=== PATIENT | male | born 1990 | race Two or more races ===

== ENCOUNTER 2018-10-15 19:07 | Emergency (ER) | payer SELFPAY ==
[2018-10-15] MEDS ORDERED: ASPIRIN 81 MG TABLET, CHEWABLE PO ONE (20:41)
--- NOTE | 2018-10-15 20:43 | ER Document Report ---
ED Medical Screen (RME) - General Stated Complaint: CHEST PAIN Time Seen by Provider: 10/15/18 20:38 Mode of Arrival: Ambulatory Information source: Patient Notes: Patient presents emergency department with complaints of chest pain headache and feeling weak for the past 3 days. Denies history of cardiac disease. Denies drinking energy drinks. Denies recreational drugs reports he feels nauseated. I have greeted and performed a rapid initial assessment of this patient. A comprehensive ED assessment and evaluation of the patient, analysis of test results and completion of the medical decision making process will be conducted by additional ED providers. Given Physical Exam - Vital signs Vitals: Temp Pulse Resp BP Pulse Ox 98.3 F 70 18 146/70 H 100 10/15/18 20:16 10/15/18 20:16 10/15/18 20:16 10/15/18 20:16 10/15/18 20:16 Course - Vital Signs Vital signs: Temp Pulse Resp BP Pulse Ox 98.3 F 70 18 146/70 H 100 10/15/18 20:16 10/15/18 20:16 10/15/18 20:16 10/15/18 20:16 10/15/18 20:16
--- NOTE | 2018-10-15 21:18 | RADIOLOGY REPORT (SQ) ---
EXAM DESCRIPTION: XR CHEST 2 VIEWS COMPLETED DATE/TME: 10/15/2018 20:40 CLINICAL HISTORY: 28 years, Male, cp COMPARISON: None. NUMBER OF VIEWS: 2 TECHNIQUE: Two-view, PA and lateral projections of the chest were obtained. LIMITATIONS: None. FINDINGS: Unremarkable cardiac and mediastinal silhouette. Heart size is normal. Lungs are clear without focal opacity, pneumothorax or pleural effusions. The visualized bones are within normal limits. IMPRESSION: No acute cardiopulmonary abnormalities. copyright 2010 [employer]- All Rights Reserved
--- NOTE | 2018-10-15 23:27 | EKG REPORT ---
SEVERITY:- NORMAL ECG - SINUS RHYTHM : Confirmed by: Kina Lazo MD 15-Oct-2018 23:26:39
--- NOTE | 2018-10-16 02:05 | ER Document Report ---
ED General - General Chief Complaint: Chest Pain Stated Complaint: CHEST PAIN Time Seen by Provider: 10/15/18 20:38 Mode of Arrival: Ambulatory Notes: Patient is a 28-year-old male presents with complaint of feeling fatigue and also having some chest pain. He said he has had some body aches throughout. This is been ongoing for approximately 3 days. He also mentions that he typically drinks alcohol on a daily basis and usually drinks approximately 12 pack a day. He says he did stop drinking 3 days ago. No fevers. Some nausea. No vomiting. No tremor. No seizure-like activity. No other complaints at this time. No history of coronary disease. No chronic medical problems other than chronic alcohol use. - Related Data Allergies/Adverse Reactions: No Known Allergies Allergy (Unverified 10/16/18 04:02) Past Medical History - General Information source: Patient - Social History Smoking Status: Never Smoker Frequency of alcohol use: Heavy Drug Abuse: None Family History: Reviewed & Not Pertinent Review of Systems - Review of Systems Notes: My Normal Review Basic REVIEW OF SYSTEMS: CONSTITUTIONAL : Denies fever, chills, or sweats. Denies recent illness. EENT: Denies eye, ear, throat, or mouth pain or symptoms. Denies nasal or sinus congestion. CARDIOVASCULAR: Mild substernal RESPIRATORY: Denies cough, cold, or chest congestion. Denies shortness of breath, difficulty breathing, or wheezing. GASTROINTESTINAL: Denies abdominal pain. Denies nausea, vomiting, or diarrhea. MUSCULOSKELETAL: Denies neck or back pain or joint pain or swelling. SKIN: Denies rash or skin lesions. NEUROLOGICAL: Denies altered mental status or loss of consciousness. Denies headache. Denies weakness or paralysis or loss of use of either side. Denies problems with gait or speech. Denies sensory or motor loss. ALL OTHER SYSTEMS REVIEWED AND NEGATIVE. Physical Exam - Vital signs Vitals: Temp Pulse Resp BP Pulse Ox 98.3 F 70 18 146/70 H 100 10/15/18 20:16 10/15/18 20:16 10/15/18 20:16 10/15/18 20:16 10/15/18 20:16 - Notes Notes: General Appearance: Well nourished, alert, cooperative, no acute distress, no obvious discomfort. Well-appearing. Vitals: reviewed, See vital signs table. Head: no swelling or tenderness to the head Eyes: PERRL, EOMI, Conjuctiva clear Mouth: No decreasd moisture Lungs: No wheezing, No rales, No rhonci, No accessory muscle use, good air exchange bilaterally. Heart: Normal rate, Regular rythm, No murmur, no rub Abdomen: Normal BS, soft, No rigidity, No abdominal tenderness, No guarding, no rebound, no abdominal masses, no organomegaly Extremities: strength 5/5 in all extremities, good pulses in all extremities, no swelling or tenderness in the extremities, no edema. Skin: warm, dry, appropriate color, no rash Neuro: speech clear, oriented x 3, normal affect, responds appropriately to questions. Symmetric facial movement. Patient moves all extremities without difficulty. Distal sensation intact. Normal gait. Course - Re-evaluation Re-evalutation: 10/16/18 06:03 Patient's laboratory evaluation is unremarkable. I do not suspect coronary disease as the cause of his chest pain this patient not have any risk factors and his history is not really consistent with that of an ME. His pain is reproducible palpation. He only has a heart score of 1. Feel the patient safe to be discharged home. I suspect that his body aches and chest pain and fatigue is probably related to the fact that he recently stopped drinking alcohol. I encouraged him to continue stop drinking alcohol as he is not having any signs of dangerous withdrawal and that he has not had seizures and is not having tremors. I informed him that eventually he will start to feel improved as long as he continues to drink alcohol. I encouraged her drink lots of liquids and the rest. I informed him to return to ER if he has worsening of symptoms, fevers, intractable vomiting, or if he feels unwell. Patient agrees with plan will be discharged home. Dictation of this chart was performed using voice recognition software; therefore, there may be some unintended grammatical errors. - Vital Signs Vital signs: Temp Pulse Resp BP Pulse Ox 97.2 F 67 20 121/74 100 10/16/18 03:52 10/16/18 03:52 10/16/18 03:52 10/16/18 03:52 10/16/18 03:52 - Laboratory Result Diagrams: 10/16/18 02:50 10/16/18 02:50 Laboratory results interpreted by me: 10/16/18 10/16/18 10/16/18 02:50 02:50 02:50 WBC 10.9 H Glucose 118 H Total Protein 8.4 H TSH 6.07 H - EKG Interpretation by Me Additional EKG results interpreted by me: 10/16/18 02:04 EKG 1 is reviewed and interpreted by me. EKG shows sinus rhythm with a rate of [address] segment elevation. No ST segment depression. No ischemic T wave inversions. RI interval, QRS duration, QT intervals are within normal range. EKG #2 is reviewed and interpreted by me. EKG shows sinus rhythm with a rate of [address] segment elevation for mild concave up ST segment elevation in inferior leads. No ST segment depression. No ischemic T wave inversions. RI interval, QRS duration, QT intervals are within normal range. Discharge - Discharge Clinical Impression: Chest pain Qualifiers: Chest pain type: unspecified Qualified Code(s): R07.9 - Chest pain, unspecified Fatigue Qualifiers: Fatigue type: unspecified Qualified Code(s): R53.83 - Other fatigue Condition: Good Disposition: HOME, SELF-CARE Additional Instructions: Your blood work did not show any concerning findings. Your chest x-ray was normal. Work-up looking at your heart did not show any evidence of heart attack. I suspect that your fatigue and body aches are related to you recently quitting alcohol. You should continue to not drink alcohol. Please drink water. Eventually the symptoms will improve. Please return to ER immediately if you have vomiting, fevers, worsening chest pain, difficulty breathing, or if you feel that you are worsening in any way. Forms: Return to Work
[2018-10-16] MEDS ORDERED: NORMAL SALINE 1000 ML 1,000 ML IV ONE (02:12)
[2018-10-16 03:07] LABS: ABSOLUTE EOSINOPHILS # (AUTO) 0.2 10^3/uL (0.0-0.6); ABSOLUTE LYMPHOCYTES (AUTO) 4.1 10^3/uL (0.5-4.7); ABSOLUTE MONOCYTES (AUTO) 0.9 10^3/uL (0.1-1.4); ABSOLUTE NEUT (AUTO) 5.6 10^3/uL (1.7-8.2); BASOPHILS % (AUTO) 0.3 % (0-2); EOSINOPHILS % (AUTO) 1.7 % (0-6); HEMOGLOBIN 15.3 g/dL (13.5-17.0); LYMPHOCYTES % (AUTO) 37.6 % (13-45); MEAN CORPUSCULAR HEMOGLOBIN 29.6 pg (27.0-33.4); MEAN CORPUSCULAR HGB CONC 34.7 g/dL (32.0-36.0); MEAN CORPUSCULAR VOLUME 85 fl (80-97); MONOCYTES % (AUTO) 8.6 % (3-13); PLATELET COUNT 230 10^3/uL (150-450); RED BLOOD COUNT 5.16 10^6/uL (4.35-5.55); RED CELL DISTRIBUTION WIDTH 12.5 % (11.5-14.0); SEGMENTED NEUTROPHILS % (AUTO) 51.8 % (42-78); TOTAL CELLS COUNTED % (AUTO) 100 %; WHITE BLOOD COUNT 10.9 10^3/uL (4.0-10.5)
[2018-10-16 03:37] LABS: ALANINE AMINOTRANSFERASE 30 U/L (21-72); ALBUMIN 4.6 g/dL (3.5-5.0); ALKALINE PHOSPHATASE 70 U/L (38-126); ANION GAP 9 (5-19); ASPARTATE AMINO TRANSFERASE 22 U/L (17-59); BILIRUBIN,DIRECT 0.3 mg/dL (0.0-0.4); BILIRUBIN,TOTAL 0.5 mg/dL (0.2-1.3); BLOOD UREA NITROGEN 17 mg/dL (7-20); CALCIUM 9.5 mg/dL (8.4-10.2); CARBON DIOXIDE 28 mmol/L (22-30); CHLORIDE 103 mmol/L (98-107); CREATINE KINASE 78 U/L (55-170); GLUCOSE 118 mg/dL (75-110); POTASSIUM 4.2 mmol/L (3.6-5.0); SODIUM 139.5 mmol/L (137-145); TOTAL PROTEIN 8.4 g/dL (6.3-8.2)
[2018-10-16 04:48] LABS: APPEARANCE,URINE CLEAR; BILIRUBIN,URINE NEGATIVE (NEGATIVE); COLOR,URINE YELLOW; GLUCOSE, URINE NEGATIVE (NEGATIVE); KETONES,URINE NEGATIVE (NEGATIVE); LEUKOCYTE ESTERASE,URINE NEGATIVE (NEGATIVE); NITRITE,URINE NEGATIVE (NEGATIVE); PROTEIN,URINE NEGATIVE (NEGATIVE); URINE SPECIFIC GRAVITY 1.028; UROBILINOGEN,URINE NEGATIVE mg/dL (<2.0)
[2018-10-16 05:08] LABS: URINE AMPHETAMINES SCREEN NEGATIVE; URINE BARBITURATES SCREEN NEGATIVE; URINE BENZODIAZEPINES SCREEN NEGATIVE; URINE COCAINE SCREEN NEGATIVE; URINE MARIJUANA (THC) SCREEN UNCONFIRMED POSITIVE; URINE METHADONE SCREEN NEGATIVE; URINE PHENCYCLIDINE SCREEN NEGATIVE
[2018-10-16 06:46] VITALS: BP 130/79
== END 2018-10-16 06:46 | disposition home or self-care (01) ==
LOC: ER 19:07
DX: R07.9 Chest pain, unspecified (principal); R53.83 Other fatigue; R11.0 Nausea
CPT/HCPCS: 93005; 99284; 96360; 36415; 82550; 83735; 84443; 85025; 80053; 81001; 84484; 80307; 71046; 93010; J7030

== ENCOUNTER 2019-10-02 10:44 | Emergency (ER) | payer SELFPAY ==
[2019-10-02 11:02] VITALS: BP 134/88
--- NOTE | 2019-10-02 11:18 | ER Document Report ---
HPI - HPI Patient complains to provider of: Dental Pain Time Seen by Provider: 10/02/19 11:07 Pain Level: 5 Context: 28-year-old male with no previous medical problems presents the emergency room complaining of left lower posterior dental pain for the past 4 days. States he has a broken tooth back there. Has been taking Advil PM to help him sleep without relief. Has not seen a dentist has not made a dental appointment. States is painful to chew. Is tolerating p.o. fluids without difficulty. Denies any fevers. Associated Symptoms: None Exacerbated by: Other - Chewing Relieved by: Denies Similar symptoms previously: No Recently seen / treated by doctor: No - ROS ROS below otherwise negative: No - CONSTITUTIONAL Constitutional: DENIES: Fever - EENT Notes: Left lower posterior dental pain - NEURO Neurology: DENIES: Headache, Weakness - CARDIOVASCULAR Cardiovascular: DENIES: Chest pain - RESPIRATORY Respiratory: DENIES: Trouble Breathing - DERM Skin Color: Normal Skin Problems: None Past Medical History - General Information source: Patient - Social History Smoking Status: Current Every Day Smoker Frequency of alcohol use: Social Drug Abuse: Marijuana Family History: Reviewed & Not Pertinent Patient has homicidal ideation: No Renal/ Medical History: Denies: Hx Peritoneal Dialysis Vertical Provider Document - CONSTITUTIONAL Agree With Documented VS: Yes Exam Limitations: No Limitations General Appearance: Mild Distress - INFECTION CONTROL TRAVEL OUTSIDE OF THE [place] IN LAST 30 DAYS: No - HEENT HEENT: Atraumatic, Normocephalic Mouth Diagram: 1 - Fractured tooth with erythema and swelling noted around the tooth. - NECK Neck: Normal Inspection, Supple. negative: Lymphadenopathy-Left, Lymphadenopathy-Right - RESPIRATORY Respiratory: Breath Sounds Normal, No Respiratory Distress, Chest Non-Tender. negative: Rales, Rhonchi, Wheezing - CARDIOVASCULAR Cardiovascular: Regular Rate, Regular Rhythm, No Murmur - MUSCULOSKELETAL/EXTREMETIES Musculoskeletal/Extremeties: MAEW, FROM, Non-Tender - NEURO Level of Consciousness: Awake, Alert, Appropriate Motor/Sensory: No Motor Deficit, No Sensory Deficit - DERM Integumentary: Warm, Dry, No Rash Course - Re-evaluation Re-evalutation: 10/02/19 11:13 Counseled diagnosis with patient. Counseled to take medications as prescribed. Counseled on importance of following up with a dentist as soon as possible. Patient was given strict return to the emergency room guidelines. Return for any new or worsening symptoms. All questions were answered. Patient verbalized understanding and agrees with plan of care. - Vital Signs Vital signs: Temp Pulse Resp BP Pulse Ox 98.8 F 85 16 134/88 H 99 10/02/19 11:02 10/02/19 11:00 10/02/19 11:00 10/02/19 11:00 10/02/19 11:00 Discharge - Discharge Clinical Impression: Pain, dental, Dental abscess Condition: Stable Disposition: HOME, SELF-CARE Instructions: Abscess ([facility]), [facility], Penicillin V K ([facility]), Toothache ([facility]) Additional Instructions: Medications as prescribed. It is important that you follow-up with a dentist as soon as possible. Return for any new or worsening symptoms. Prescriptions: Diclofenac Sodium 75 mg PO BID #10 tablet. Penicillin V Potassium [Penicillin Vk 500 mg Tablet] 500 mg PO QID 10 Days #40 tablet
== END 2019-10-02 11:20 | disposition home or self-care (01) ==
LOC: ER 10:44
DX: K04.7 Periapical abscess without sinus (principal); K08.89 Other specified disorders of teeth and supporting structures; F17.200 Nicotine dependence, unspecified, uncomplicated; F12.10 Cannabis abuse, uncomplicated
CPT/HCPCS: 99282